=== PATIENT | female | born 1985 | race Caucasian/White ===

== ENCOUNTER 2017-01-03 21:46 | Observation (INO) | payer OTHER ==
[~2017-01-03] VITALS: Ht 165.1 cm; Wt 85.0 kg
[~2017-01-03 21:46] MED LIST: MULT1TAB46
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
[2017-01-03 22:26] VITALS: BP 90/59; PULSE 117; RESP 18; TEMP 97.9; O2SAT 98
[2017-01-03 22:42] LABS: HEMATOCRIT 24.6 % (35.0-46.0); MEAN CORPUSCULAR HEMOGLOBIN 27.1 PG (27.0-34.0); MEAN CORPUSCULAR HGB CONC 32.6 % (32.0-36.0); PLATELET COUNT 223 TH/MM3 (150-450); RED BLOOD COUNT 2.96 MIL/MM3 (4.00-5.30); RED CELL DISTRIBUTION WIDTH 13.9 % (11.6-17.2); REVIEW FLAG FINAL; WHITE BLOOD COUNT 21.7 TH/MM3 (4.0-11.0)
[2017-01-03 23:21] VITALS: BP 88/58; PULSE 100; RESP 18; O2SAT 99
--- NOTE | 2017-01-03 23:24 | RADRPT ---
EXAM DATE/TIME: 01/03/2017 22:48 [facility] COMPARISON: No previous studies available for comparison. INDICATIONS : Bleeding with . LAB(S): [facility]C MEDICAL HISTORY : . SURGICAL HISTORY : None. ENCOUNTER: Initial ACUITY: 1 day PAIN SCORE: 1/10 LOCATION: Bilateral pelvis MEASUREMENTS: UTERUS: 14.4 x 6.9 x 6.4 cm ENDOMETRIAL STRIPE: 17 mm RIGHT OVARY: 3.6 x 2.0 x 2.1 cm LEFT OVARY: 3.1 x 2.3 x 2.1 cm FREE FLUID: No CROWN RUMP LENGTH: 3.1 cm = 10 WKS 0 DAYS FHR: Non visualized. BPM FINDINGS: UTERUS: Irregularly shaped gestational sac is seen within the lower uterine segment/cervix. pole has a measurement indicating a gestational age of 10 weeks 10 days. No heart activity identified. RIGHT OVARY: Ovary contains no mass or significant cystic lesion. LEFT OVARY: Ovary contains no mass or significant cystic lesion. MISCELLANEOUS: No free fluid. CONCLUSION: Findings indicated a failed intrauterine . Irregular gestational sac in the lower uterine se gment/cervix containing a pole with size indicating gestational age of 10 weeks. No heart activity identified. Shar Keyes MD on January 03, 2017 at 23:18 Board Certified Radiologist. This report was verified electronically.
[2017-01-03] MEDS ORDERED: SODIUM CHLOR 0.9% 250 ML INJ 250 ML IV ONE (23:30)
[2017-01-03] MEDS ORDERED: LACTATED RINGER'S 1000 ML INJ 1,000 ML IV SCH (23:59)
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
[2017-01-04] VITALS (11 sets, daily range): BP systolic 75–99; BP diastolic 47–55; PULSE 81–95; RESP 16–18; TEMP 96.4–99.5; O2SAT 95–100
[2017-01-04] MEDS ORDERED: CITRIC ACID-SODIUM CITRATE LIQ 30 ML UDC PO SCH
[2017-01-04] MEDS ORDERED: SODIUM CHLORIDE 0.9% FLUSH 10 ML FLUSH IV FLUSH PRN
[2017-01-04] MEDS ORDERED: MISOPROSTOL 200 MCG TAB ONE (00:41)
[2017-01-04] MEDS ORDERED: METHYLERGONOVINE MALEATE 0.2 MG/ML VIAL ONE (00:54)
[2017-01-04] MEDS ORDERED: ceFAZolin INJ 1,000 MG VIAL IV ONE (00:57)
--- NOTE | 2017-01-04 01:20 | PD.OP ---
Operative Report Date of Surgery: Jan 04, 2017 Preoperative Diagnosis: (1) Missed with demise before 20 completed weeksof gestation Postoperative Diagnosis: (1) Missed with demise before 20 completed weeksof gestation Procedure: SUCTION D+C Anesthesia: LMA Surgeon: Carl Waldron Compressor Battery Pellets(s): Shorty X 1 Resident Surgeon: SHAUNA Operation and Findings: POC AT OS 500 CC CLOTTED BLOOD IN VAULT UTERUS SOUNDS 10 CM GRITTY FEEL IN ALL QUADS AFTER SUCTION NO SX OF PERFORATION 600 MCGS OF CYTOTEC AND .2 METHERGINE IM Carl Waldron MD Jan 04, 2017 01:19
[2017-01-04] MEDS ORDERED: DO NOT ADM ANY ANTICOAGULANT DRUGS PRN (01:22)
[2017-01-04] MEDS ORDERED: *MEPERIDINE 25 MG INJ VIAL PERIprocedural Use ONLY ONE (01:22)
[2017-01-04] MEDS ORDERED: IBUPROFEN 600 MG TAB PO PRN (01:30)
[2017-01-04] MEDS ORDERED: ONDANSETRON HCL 4 MG/2 ML VIAL IV PUSH PRN (01:30)
[2017-01-04] MEDS ORDERED: SIMETHICONE 80 MG CHEWABLE TAB PO PRN (01:30)
[2017-01-04] MEDS ORDERED: ACETAMINOPHEN 1000 MG/100 ML VIAL IV ONE (01:30)
[2017-01-04] MEDS ORDERED: ZOLPIDEM TARTRATE 5 MG TAB PO PRN (01:30)
[2017-01-04] MEDS ORDERED: KETOROLAC TROMETHAMINE 60 MG/2 ML (IM) VIAL IM PRN (01:30)
[2017-01-04] MEDS ORDERED: METOPROLOL TARTRATE 25 MG TAB PO PRN (01:45)
[2017-01-04] MEDS ORDERED: LACTATED RINGER'S 1000 ML IV PRN (01:45)
[2017-01-04] MEDS ORDERED: INSULIN HUMAN REGULAR 1,000 UNITS/10 ML VIAL SQ PRN (01:45)
[2017-01-04] MEDS ORDERED: CHLORHEXIDINE GLUCONATE 2 % 1 PACK (2 CLOTHS) TOPICAL PRN (01:45)
[2017-01-04] MEDS ORDERED: POVIDONE IODINE 5% (ANTISEPSIS KIT) 4 APPLICATIONS EACH NARE PRN (01:45)
[2017-01-04] MEDS ORDERED: SODIUM CHLORID 0.9% 500 ML IV PRN (01:45)
[2017-01-04] MEDS ORDERED: LACTATED RINGER'S 1000 ML INJ 1,000 ML IV SCH (06:20)
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
[2017-01-04 07:23] LABS: AUTOMATED NEUTROPHIL # 12.3 TH/MM3 (1.8-7.7); BASOPHIL % 0.3 % (0.0-2.0); EOSINOPHIL # 0.1 TH/MM3 (0-0.4); EOSINOPHIL % 0.6 % (0.0-4.0); LYMPH % 23.4 % (9.0-44.0); LYMPHOCYTE # 4.3 TH/MM3 (1.0-4.8); MEAN CELL VOLUME 83.6 FL (80.0-100.0); MEAN CORPUSCULAR HEMOGLOBIN 26.9 PG (27.0-34.0); MEAN CORPUSCULAR HGB CONC 32.2 % (32.0-36.0); MONO % 8.2 % (0.0-8.0); NEUT % 67.5 % (16.0-70.0); PLATELET COUNT 178 TH/MM3 (150-450); RED BLOOD COUNT 2.36 MIL/MM3 (4.00-5.30); WHITE BLOOD COUNT 18.2 TH/MM3 (4.0-11.0)
[2017-01-04 07:32] LABS: HEMO FLAGS DIFF FINAL
[2017-01-04 07:34] LABS: HEMATOCRIT 19.7 % (35.0-46.0)
[2017-01-04] MEDS ORDERED: SODIUM CHLORIDE 0.9% FLUSH 10 ML FLUSH IV FLUSH SCH (09:00)
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
[2017-01-04] MEDS ORDERED: DOXY1TAB6 PO (11:47)
[2017-01-04] MEDS ORDERED: KETO10 PO (11:48)
--- NOTE | 2017-01-04 11:49 | HHI.OB ---
Subjective Post Operative Day: 0 Remarks DAY OF SURGERY SUCTION D/C FOR INCOMPLETE AB BLEEDING SCANT NO ISSUES IS GETTING SECOND UNIT OF BLOOD SINCE DHC WAS BELOW 20 AND SHE WAS SYMPTOMATIC NO N/V WANTS TO GO HOME AFTER PRBC Objective Vitals/I&O Vital Signs Date Time Temp Pulse Resp B/P Pulse Ox O2 Delivery O2 Flow Rate FiO2 01/04/17 11:32 96.4 88 17 77/50 98 01/04/17 11:31 96 21 01/04/17 11:00 97.4 88 17 81/51 99 01/04/17 09:35 97.8 94 17 76/49 99 01/04/17 09:20 96.8 95 17 75/47 99 01/04/17 09:20 96.8 95 17 75/47 99 01/04/17 08:00 97.5 87 16 90/53 99 01/04/17 02:50 97.0 86 17 88/49 96 01/04/17 02:00 97.8 82 14 97/54 100 Room Air 01/04/17 01:45 88 16 105/59 100 Room Air 01/04/17 01:30 88 22 111/59 100 Nasal Cannula 2 01/04/17 01:20 97.6 102 24 112/59 100 Nasal Cannula 3 01/03/17 23:21 100 18 88/58 99 Room Air 01/03/17 22:26 97.9 117 18 90/59 98 Intake & Output 01/04/17 01/04/17 07:00 19:00 Intake Total 1610 ml Output Total 400 ml Balance 1210 ml Intake Oral 120 ml IV Total 490 ml Other 1000 ml Output Estimated Blood Loss 200 ml Other 200 ml # Voids 0 1 # Bowel Movements 0 Result Diagram: 01/04/17621 Objective Remarks GENERAL: Well-nourished, well-developed patient. CARDIOVASCULAR: Regular rate and rhythm without murmurs, gallops, or rubs. ABDOMEN/GI: Abdomen soft, non-tender, bowel sounds present. Incision: Clean, dry and intact. Fundus: Firm, non-tender at umbilicus. GENITOURINARY: Light to moderate bleeding. EXTREMITIES: No cyanosis or edema, non-tender, without signs of DVT. Medications and IVs Current Medications Medications (Trade) Dose Ordered Sig/Ankur Route Start Time Stop Time Status Last Admin (NS 250 ml Inj) 250 ml @ 15 mls/hr ONCE ONCE IV 01/03/17 23:30 01/04/17 16:09 (NS Flush) 2 ml UNSCH PRN IV FLUSH 01/04/17 00:00 Sodium Chloride 2 ml 2 ml BID IV FLUSH 01/04/17 09:00 (Lr 1000 ml Inj) 1,000 ml @ 100 mls/hr Q10H IV 01/04/17 06:20 01/05/17 02:19 01/04/17 01:46 (Mylicon Chew) 80 mg QID PRN PO 01/04/17 01:30 (Motrin) 600 mg Q6H PRN PO 01/04/17 01:30 (Toradol Inj) 30 mg Q6H PRN IM 01/04/17 01:30 01/05/17 01:29 01/04/17 01:49 (Ambien) 5 mg HS PRN PO 01/04/17 01:30 Ondansetron HCl 4 mg 4 mg Q6H PRN IV PUSH 01/04/17 01:30 Lactated Ringer's 1,000 ml @ 30 mls/hr Q24H PRN IV 01/04/17 01:45 01/07/17 01:44 (NS 500 ml Inj) 500 ml @ 30 mls/hr [id number] PRN IV 01/04/17 01:45 01/07/17 01:44 Miscellaneous Information ALL NURSING DEPARTME... UNSCH PRN .XX 01/04/17 01:22 01/05/17 01:21 Assessment/Plan Assessment and Plan DOING WELL AND DISCUSSED I/P AND F/U SHE IS WELCOME TO SEE ME IN 2 WEEKS FOR POST OP SHE NEEDS TO FIND LOCAL OBGYN FOR [facility] AND SHE WANTS TO PURSUE A BTL WILL DC AFTER BLOOD AND USE 5 DAYS OF DOXY AND TORADOL NEEDED DISCUSSED PLAN WITH MEDICAL TEAM AND AGREE WITH PLAN Attending Attestation DIRECTLY MANAGED PT Carl Waldron MD Jan 04, 2017 11:49
[2017-01-04] MEDS ORDERED: PROPOFOL 200 MG/20 ML AMP IV ONE (12:00)
[2017-01-04] MEDS ORDERED: LACTATED RINGER'S 1000 ML INJ 1,000 ML IV ONE (12:00)
[2017-01-04] MEDS ORDERED: ONDANSETRON HCL 4 MG/2 ML VIAL IV PUSH ONE (12:00)
[2017-01-04 16:52] LABS: HEMATOCRIT 25.5 % (35.0-46.0); REVIEW FLAG FINAL
--- NOTE | 2017-01-05 21:25 | MP ---
cc: MELISSA MANNING DATE OF SURGERY 01/04/17 PREOPERATIVE DIAGNOSES Incomplete POSTOPERATIVE DIAGNOSIS Incomplete PROCEDURE Suction D&C. SURGEON Cris Manning MD ANESTHESIA Laryngeal mask BLOOD LOSS 500 mL of clotted blood in the vault prior to procedure. Intraoperative blood loss approximately 100 mL. ENVIRONMENTAL COMPLIANCE SPECIALIST [place] staff x1. FLUIDS 2000 mL crystalloid URINE OUTPUT 100 mL FINDINGS External genitalia normal pop Q score Aa is -3, Ap is -3, point C is -8, total vaginal length is 10. General hiatus is four, perineal body is 5. Uterus is anteverted and flexed 10 weeks size prior to conception at the os clotted blood in the vaginal vault. Following suction D&C, all four quadrants had a gritty feel to them. No sign of retained products, no sign of compromise of the uterine cavity. SPECIMENS Products of conception. COMPLICATIONS None DISPOSITION Recovery room stable. COUNTS Needle and sponge correct. DRAINS None. PROPHYLAXIS Antibiotic prophylaxis Ancef 1 gram. DVT prophylaxis sequential compression device. Time-out procedure per protocol. INDICATIONS Patent presented to the ER with signs and symptoms consistent with AB. She had hematocrit drop from 32-24. Had ultrasound which showed products of conception 10 weeks at the os mid to lower uterine segment. The patient could not tolerate exam in the ER and was brought surgery for evaluation and treatment. PROCEDURE IN DETAIL The patient taken to the operating theater, identified, prepped and draped in fashion appropriate for planned procedure. She was in dorsal lithotomy position with careful attention paid to placement of legs in stirrups to avoid undue stress to sensitive neurovascular structures. Above findings noted. Neurovascular ____ documented. Bladder was drained. The uterus sounded to 10 cm. There was approximately 500 mL of clotted blood in the vault. This was suctioned out with the curette products of conception removed ring clamp and then the endometrial cavity was suctioned with a 10 mm curved curette. There was a gritty feel in all quadrants with a sharp curette. Following procedure bleeding had decreased. The patient did receive 600 mcg per rectum of Cytotec and 0.2 mg IM Methergine. The patient tolerated procedure well, went to recovery room in stable condition. By the fact of the second cook and baker hours of 1:30 a.m. and the fact that patient [place], we will keep her until morning and have Medical team see her regarding need for transfusion. At this point, she is hemodynamically stable and although I suspect her hematocrit will be in the low 20s she may well tolerate that but will get medical team's assessment. The patient's blood type is O+, does not require RhoGAM. MD JERMAINE Collins/ /1:25 AM /9:09 PM
== END 2017-01-04 18:39 | disposition home or self-care (01) ==
LOC: NEPC 21:46 → NEDA 23:34 → N06A 01-04 02:13
PROVIDERS: ADMIT Obstetrics & Gynecology Gynecology; ATTEND Obstetrics & Gynecology Gynecology
DX: O03.4 Incomplete spontaneous abortion without complication (principal); Z3A.10 10 weeks gestation of pregnancy; D50.0 Iron deficiency anemia secondary to blood loss (chronic); F43.10 Post-traumatic stress disorder, unspecified
CPT/HCPCS: 01965; 36430; 59812; 76700; 85014; 85018; 85025; 85027; 86850; 86900; 86901; 86920; 88305; 99285; G0378; J0131; J0690; J1885; J2175; J2210; J2405; J3010; J7120; P9016